=== PATIENT | female | born 1990 | race Two or more races ===

== ENCOUNTER 2024-08-06 08:09 | Day surgery (SDC) | payer OTHER ==
[~2024-08-06 08:09] MED LIST: FOLIC ACID0.8 MG; PRENATABS FA TA1 TAB
[2024-08-06] MEDS ORDERED: POVIDONE-IODINE 118 ML BOTT TOP ONE (15:53)
[2024-08-06] MEDS ORDERED: OxyCODONE HCL/APAP UD (PERCOCET) PO SCH (21:00)
== END 2024-08-06 19:30 | disposition home or self-care (01) ==
LOC: CIR.AMB 08:09
PROVIDERS: ATTEND Obstetrics & Gynecology
DX: N87.1 Moderate cervical dysplasia (principal); Z88.1 Allergy status to other antibiotic agents

== ENCOUNTER 2025-01-30 12:30 | Outpatient (CLI) | payer OTHER | END 2025-01-30 12:38 | disposition home or self-care (01) | LOC: PRENATAL 12:30 | PROVIDERS: ATTEND Obstetrics & Gynecology Maternal & Fetal Medicine | DX: O36.80X0 Pregnancy with inconclusive fetal viability, not applicable or unspecified (principal); Z36.82 Encounter for antenatal screening for nuchal translucency; Z14.8 Genetic carrier of other disease; O34.40 Maternal care for other abnormalities of cervix, unspecified trimester; Z3A.14 14 weeks gestation of pregnancy ==

== ENCOUNTER 2025-03-12 07:41 | Outpatient (CLI) | payer OTHER | END 2025-03-12 07:42 | disposition home or self-care (01) | LOC: PRENATAL 07:41 | PROVIDERS: ATTEND Obstetrics & Gynecology Maternal & Fetal Medicine | DX: O44.00 Complete placenta previa NOS or without hemorrhage, unspecified trimester (principal); O34.40 Maternal care for other abnormalities of cervix, unspecified trimester; Z3A.20 20 weeks gestation of pregnancy ==

== ENCOUNTER 2025-05-09 13:26 | Outpatient (CLI) | payer OTHER | END 2025-05-09 13:29 | disposition home or self-care (01) | LOC: PRENATAL 13:26 | PROVIDERS: ATTEND Obstetrics & Gynecology Maternal & Fetal Medicine | DX: O26.843 Uterine size-date discrepancy, third trimester (principal); O34.43 Maternal care for other abnormalities of cervix, third trimester; O99.013 Anemia complicating pregnancy, third trimester; Z3A.28 28 weeks gestation of pregnancy ==

== ENCOUNTER 2025-06-19 08:19 | Outpatient (CLI) | payer OTHER | END 2025-06-19 08:20 | disposition home or self-care (01) | LOC: PRENATAL 08:19 | PROVIDERS: ATTEND Obstetrics & Gynecology Maternal & Fetal Medicine | DX: O26.843 Uterine size-date discrepancy, third trimester (principal); O36.8130 Decreased fetal movements, third trimester, not applicable or unspecified; O34.43 Maternal care for other abnormalities of cervix, third trimester; O99.013 Anemia complicating pregnancy, third trimester; Z3A.34 34 weeks gestation of pregnancy ==